=== PATIENT | male | born 1985 | race African-American/Black ===

== ENCOUNTER 2018-06-29 08:56 | Emergency (ER) | payer MEDICAID, OTHER ==
[~2018-06-29] VITALS: Ht 170.2 cm; Wt 61.2 kg
[2018-06-29 08:57] VITALS: BP_SYST 120
[2018-06-29 10:10] VITALS: BP_SYST 127
== END 2018-06-29 10:09 | disposition home or self-care (01) ==
LOC: SED 08:56
DX: J02.8 Acute pharyngitis due to other specified organisms (principal); B96.89 Other specified bacterial agents as the cause of diseases classified elsewhere
CPT/HCPCS: 71045; 99283

== ENCOUNTER 2018-11-08 18:59 | Emergency (ER) | payer MEDICAID, OTHER ==
[~2018-11-08] VITALS: Ht 170.2 cm; Wt 65.8 kg
[2018-11-08 19:16] VITALS: BP_SYST 117
[2018-11-08] MEDS ORDERED: BACITRACIN 1 GM OINT TP ONE (20:06)
[2018-11-08 20:40] VITALS: BP_SYST 123
== END 2018-11-08 20:40 | disposition home or self-care (01) ==
LOC: SED 18:59
DX: S93.601A Unspecified sprain of right foot, initial encounter (principal); S80.211A Abrasion, right knee, initial encounter; S80.212A Abrasion, left knee, initial encounter; V29.40XA Motorcycle driver injured in collision with unspecified motor vehicles in traffic accident, initial encounter; Y93.89 Activity, other specified; Y92.410 Unspecified street and highway as the place of occurrence of the external cause; Y99.8 Other external cause status
CPT/HCPCS: 99283

== ENCOUNTER 2019-12-18 09:42 | Emergency (ER) | payer MEDICAID ==
[~2019-12-18] VITALS: Ht 170.2 cm; Wt 61.2 kg
[2019-12-18 09:42] VITALS: BP_SYST 129
[2019-12-18 11:22] VITALS: BP_SYST 129
== END 2019-12-18 11:22 | disposition home or self-care (01) ==
LOC: SED 09:42
DX: S60.022A Contusion of left index finger without damage to nail, initial encounter (principal); F17.210 Nicotine dependence, cigarettes, uncomplicated; W22.8XXA Striking against or struck by other objects, initial encounter; Y93.89 Activity, other specified; Y92.410 Unspecified street and highway as the place of occurrence of the external cause; Y99.8 Other external cause status
CPT/HCPCS: 99283

== ENCOUNTER 2022-01-20 13:11 | Emergency (ER) | payer OTHER, MEDICAID ==
[~2022-01-20] VITALS: Ht 170.2 cm; Wt 68.9 kg
[2022-01-20 13:21] VITALS: BP_SYST 127
[2022-01-20] MEDS ORDERED: DIPH-TET-PERTUS Vaccine 0.5 ML VIAL (ADACEL) I.M. ONE (14:30)
[2022-01-20] MEDS ORDERED: LIDOCAINE MPF 1% 50 MG/5 ML AMP INJ ONE (14:30)
[2022-01-20] MEDS ORDERED: LIDOCAINE 1% 10 MG/ML, 20 ML MDV INJ ONE (14:45)
[2022-01-20 16:16] VITALS: BP_SYST 124
== END 2022-01-20 16:16 | disposition home or self-care (01) ==
LOC: SED 13:11
DX: S61.011A Laceration without foreign body of right thumb without damage to nail, initial encounter (principal); W45.8XXA Other foreign body or object entering through skin, initial encounter; Y93.89 Activity, other specified; Y92.89 Other specified places as the place of occurrence of the external cause; Y99.8 Other external cause status
CPT/HCPCS: 12001; 73140; 90471; 90715; 99283; J2001